=== PATIENT | female | born 1970 | race African-American/Black ===

== ENCOUNTER 2016-08-02 19:16 | Emergency (ER) | payer MEDICARE, OTHER ==
[~2016-08-02] VITALS: Ht 170.2 cm; Wt 108.9 kg
[~2016-08-02 19:16] MED LIST: AUGMENTIN 875-1 EAC1 ORAL; BACTRIM DS TAB1 EAC1 ORAL; IBUPROFEN600 MG ORAL; LISINOPRIL10 MG ORAL; NAPROXEN250 MG ORAL; NKM; NORCO 10/3251 EA ORAL; NORCO 5-325 TA1 EACH ORAL
[2016-08-02] MEDS ORDERED: ROBAXIN-750750 MG PO (21:06)
[2016-08-02] MEDS ORDERED: NORVASC10 MG ORAL (21:06)
[2016-08-02] MEDS ORDERED: IBUPROFEN800 MG ORAL (21:06)
[2016-08-02] MEDS ORDERED: Methocarbamol 750mg tab ORAL ONE (21:15)
[2016-08-02 21:26] VITALS: BP 151/105
[2016-08-02 21:43] VITALS: BP 185/102
[2016-08-02 22:09] VITALS: BP 154/84
[2016-08-02 22:10] VITALS: BP 154/84
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
== END 2016-08-02 22:10 | disposition home or self-care (01) ==
LOC: EMR 20:55
DX: I10 Essential (primary) hypertension (principal); M54.41 Lumbago with sciatica, right side; G89.29 Other chronic pain
CPT/HCPCS: 99283

== ENCOUNTER 2017-01-21 14:43 | Emergency (ER) | payer MEDICARE, OTHER ==
[~2017-01-21] VITALS: Ht 170.2 cm; Wt 108.9 kg
[~2017-01-21 14:43] MED LIST changes: +IBUPROFEN800 MG ORAL; +NORVASC10 MG ORAL; +ROBAXIN-750750 MG PO
[2017-01-21 15:00] VITALS: BP 153/93
--- NOTE | 2017-01-21 15:20 | Emergency Room Report ---
History of Present Illness General Chief Complaint: General Complaint Source: Patient Present Illness HPI 46 YO female presents to the ED c/o three itchy insect bites on the right side of the face x 3 days with worsening erythema and increased temperature to palpation since last night. pt. reports one lesion has progressed to have a blister. pt denies wheezing, swelling of the lips or tongue, SOB, or dyspnea. pt. denies taking OTC medications for her symptoms. pt denies lesions elsewhere. pt reports right sided ALARCON 4/10 in severity , denies n/v/f/c. Pt states itching is primary symptoms and reports that it is sever, denies burning sensation or pain on the lesions. Denies CP, Palpitations, LOC, AMS, dizziness , Changes in Vision, Sensation, paresthesias, or a sudden severe headache. Allergies: Uncoded Allergies: PINEAPPLES (Allergy, Unknown, 01/21/17) Patient History Past Medical History: see triage record Past Surgical History: none Pertinent Family History: none Last Menstrual Period: total hystrectomy Now: No Reviewed Nursing Documentation: PMH: Agreed, PSxH: Agreed Nursing Documentation-PMH Past Medical History: No History, Except For Hx Hypertension: Yes History Of Psychiatric Problem: Yes - Paranoid Schizophrenia Review of Systems All Other Systems: negative except mentioned in HPI Physical Exam Vital Signs Date Time Temp Pulse Resp B/P Pulse Ox O2 Delivery O2 Flow Rate FiO2 01/21/17 15:00 98.2 19 153/93 98 Room Air 01/21/17 15:00 76 Sp02 EP Interpretation: reviewed, normal General Appearance: no apparent distress, alert, GCS 15, non-toxic Head: normocephalic, atraumatic Eyes: bilateral eye PERRL, bilateral eye normal inspection ENT: hearing grossly normal, normal pharynx, no angioedema, normal voice Neck: full range of motion, supple/symm/no masses Respiratory: lungs clear, normal breath sounds, speaking full sentences Cardiovascular #1: regular rate, rhythm, no edema Musculoskeletal: back normal, gait/station normal, normal range of motion, non- tender Neurologic: alert, oriented x3, responsive, motor strength/tone normal, sensory intact, speech normal Psychiatric: judgement/insight normal, memory normal, mood/affect normal Skin: normal color, warm/dry, well hydrated, rash - 3 lesions on the right side of the face/cheek with mild induration noted, one lesion is noted to have discrete vessicle appearance. all lesions are less then 0.5cm in diameter. there is surrounding soft tissue erythema and mild increased temperature to palpation. Lymphatic: no adenopathy Medical Decision Making PA Attestation Dr. Wolf is my supervising Physician whom patient management has been discussed with. Diagnostic Impression: Primary Impression: Insect bite Qualified Codes: W57.XXXA - Bitten or stung by nonvenomous insect and other nonvenomous arthropods, initial encounter Additional Impression: Cellulitis Qualified Codes: L03.211 - Cellulitis of face ER Course Pt. presents to the ED c/o Itching, swelling, and erythema of 3 lesions on the right side of the face/cheek x 3 days. pt reports itching is severe, and redness with warmth has progressed x 1 day Ddx considered but are not limited to cellulitis, scabies, insect bites, tic bites, spider bites, contact dermatitis, Drug reaction, allergic reaction, fungal infection, lice. Vital signs: are WNL, pt. is afebrile H&PE are most consistent with multiple insect bites to the right side of face with secondary cellulitis. ORDERS: none required at this time, the diagnosis is clinical ED INTERVENTIONS: None required at this time. DISCHARGE: At this time pt. is stable for d/c to home. Will provide printed patient care instructions, and any necessary prescriptions. Care plan and follow up instructions have been discussed with the patient prior to discharge. Last Vital Signs Date Time Temp Pulse Resp B/P Pulse Ox O2 Delivery O2 Flow Rate FiO2 01/21/17 15:00 98.2 76 19 153/93 98 Room Air Disposition: HOME, SELF-CARE Condition: Stable Scripts Hydrocortisone (Hydrocortisone Cream 2.5%) Y Cream.appl 1 APPLIC TP BID, #28.3 GM Prov: Sandra Kumar P.A. 01/21/17 Diphenhydramine Hcl* (BENADRYL*) 25 Mg Capsule 25 MG ORAL Q6H Y for Itching, #20 CAP Prov: Sandra Kumar P.A. 01/21/17 Cephalexin* (KEFLEX*) 500 Mg Capsule 500 MG ORAL EVERY 12 HOURS for 7 Days, #14 CAP 0 Refills Prov: Sandra Kumar P.A. 01/21/17 Patient Instructions: Cellulitis, [id number], Insect Bite, [id number] Additional Instructions: Take medications as directed. Follow up with a Primary Care Provider in 3-5 days, even if your symptoms have resolved. --Please review list of primary care clinics, if you do not already have a primary care provider Return sooner to ED if new symptoms occur, or current symptoms become worse. Do not drink alcohol, drive, or operate heavy machinery while taking Benadryl as this may cause drowsiness. - Please note that this Emergency Department Report was dictated using [employer] brush worker technology software, occasionally this can lead to erroneous entry secondary to interpretation by the dictation equipment. Sandra Kumar Jan 21, 2017 15:20
[2017-01-21] MEDS ORDERED: BENADRYL25 MG ORAL (15:21)
[2017-01-21] MEDS ORDERED: CEPHALEXIN500 MG ORAL (15:21)
[2017-01-21] MEDS ORDERED: HYDROCORTISONE30 G2 TP (15:21)
[2017-01-21 15:28] VITALS: BP 153/93
== END 2017-01-21 15:28 | disposition home or self-care (01) ==
LOC: EMR 15:27
DX: S00.86XA Insect bite (nonvenomous) of other part of head, initial encounter (principal); S10.86XA Insect bite of other specified part of neck, initial encounter; L03.211 Cellulitis of face; L03.221 Cellulitis of neck; W57.XXXA Bitten or stung by nonvenomous insect and other nonvenomous arthropods, initial encounter; Y92.9 Unspecified place or not applicable; I10 Essential (primary) hypertension
CPT/HCPCS: 99284

== ENCOUNTER 2018-02-27 16:03 | Emergency (ER) | payer MEDICARE, OTHER ==
[~2018-02-27] VITALS: Ht 170.2 cm; Wt 107.0 kg
[~2018-02-27 16:03] MED LIST changes: +BENADRYL25 MG ORAL; +CEPHALEXIN500 MG ORAL; +HYDROCORTISONE30 G2 TP
[2018-02-27] MEDS ORDERED: SEROQUEL25 MG ORAL (16:27)
[2018-02-27 16:29] VITALS: BP 138/88
[2018-02-27] MEDS ORDERED: Metoclopramide 10mg/2ml Inj IM ONE (17:00)
[2018-02-27] MEDS ORDERED: Tylenol #3 tab (300mg/30mg) ORAL ONE (17:00)
[2018-02-27 17:51] LABS: APPEARANCE,URINE SLIGHTLY CLOUDY; BILIRUBIN, URINE NEGATIVE (NEGATIVE); GLUCOSE, URINE (UA) NEGATIVE (NEGATIVE); KETONES,URINE 1+ (NEGATIVE); LEUKOCYTE ESTERASE ,URINE 3+ (NEGATIVE); NITRITE,URINE NEGATIVE (NEGATIVE); PH,URINE 6 (4.5-8.0); PROTEIN,URINE 2+ (NEGATIVE); UROBILINOGEN,URINE 4 MG/DL (0.0-1.0)
[2018-02-27 17:53] LABS: COLOR,URINE YELLOW
--- NOTE | 2018-02-27 18:40 | Emergency Room Report ---
History of Present Illness General Chief Complaint: General Complaint Source: Patient Present Illness HPI 37-year-old female presents to the emergency department complaining of 9 out of 10 in severity right-sided headache 4 days. Patient reports history of migraines and she normally takes. Patient reports symptoms are consistent with previous migraines. Denies nausea, vomiting, . Denies history of recent head injury Denies CP, Palpitations, LOC, AMS, dizziness, Changes in Vision, Sensation, paresthesias, or a sudden severe headache. Allergies: Uncoded Allergies: PINEAPPLES (Allergy, Unknown, 01/21/17) Patient History Past Medical History: see triage record Past Surgical History: none Pertinent Family History: none Last Menstrual Period: hysterectomy Now: No Immunizations: UTD Reviewed Nursing Documentation: PMH: Agreed; PSxH: Agreed Nursing Documentation-PMH Past Medical History: No History, Except For Hx Hypertension: Yes History Of Psychiatric Problem: Yes - Schizophrenia Review of Systems All Other Systems: negative except mentioned in HPI Physical Exam Vital Signs Date Time Temp Pulse Resp B/P (MAP) Pulse Ox O2 Delivery O2 Flow Rate FiO2 02/27/18 16:21 98.3 71 14 138/88 97 Room Air 98.2 Sp02 EP Interpretation: reviewed, normal General Appearance: no apparent distress, alert, GCS 15, non-toxic Head: normocephalic, atraumatic Eyes: bilateral eye normal inspection, bilateral eye PERRL ENT: hearing grossly normal, normal voice Neck: full range of motion Respiratory: lungs clear, normal breath sounds, speaking full sentences Cardiovascular #1: regular rate, rhythm Gastrointestinal: non tender, soft Genitourinary: normal inspection, no CVA tenderness Musculoskeletal: back normal, gait/station normal, normal range of motion, non- tender Neurologic: alert, oriented x3, responsive, motor strength/tone normal, sensory intact, normal gait, speech normal, grossly normal Psychiatric: judgement/insight normal Skin: normal color, no rash, warm/dry, well hydrated Lymphatic: no adenopathy Medical Decision Making PA Attestation Dr. Muñoz is my supervising Physician whom patient management has been discussed with. Diagnostic Impression: Primary Impression: UTI (urinary tract infection) Qualified Codes: N30.00 - Acute cystitis without hematuria Additional Impression: Headache Qualified Codes: R51 - Headache ER Course Pt. presents to the ED c/o headache x [ ] Described as [ ] Ddx considered but are not limited to migraine, SAH, Pseudomotor Cerebri,, Mass lesion, Cluster ALARCON, Tension ALARCON, Post lumbar puncture ALARCON. Vital signs: are WNL, pt. is afebrile H&PE are most consistent with migraine headache ORDERS: - none required at this time, dx is clinical. ED INTERVENTIONS: - Compazine PO -IM Toradol DISCHARGE: At this time pt. is stable for d/c to home. Will provide printed patient care instructions, and any necessary prescriptions. Care plan and follow up instructions have been discussed with the patient prior to discharge. Labs Test 02/27/18 17:38 Urine Color Yellow Urine Appearance Slightly cloudy Urine pH 6 (4.5-8.0) Urine Specific [place] 1.020 (1.005-1.035) Urine Protein 2+ (NEGATIVE) Urine Glucose (UA) Negative (NEGATIVE) Urine Ketones 1+ (NEGATIVE) Urine Blood 4+ (NEGATIVE) Urine Nitrite Negative (NEGATIVE) Urine Bilirubin Negative (NEGATIVE) Urine Urobilinogen 4 MG/DL (0.0-1.0) Urine Leukocyte Esterase 3+ (NEGATIVE) Urine RBC 5-10 /HPF (0 - 2) Urine WBC 15-20 /HPF (0 - 2) Urine Squamous Epithelial Cells Many /LPF (NONE/OCC) Urine Bacteria Moderate /HPF (NONE) Last Vital Signs Date Time Temp Pulse Resp B/P (MAP) Pulse Ox O2 Delivery O2 Flow Rate FiO2 02/27/18 17:39 98.2 02/27/18 16:29 74 14 138/88 97 Room Air Disposition: HOME, SELF-CARE Condition: Stable Scripts Ciclopirox (PENLAC) 6.6 Ml Solution 6.6 ML TP DAILY, #6.6 ML Prov: Sandra Kumar 02/27/18 Aspirin/Acetaminophen/Caffeine (EXCEDRIN MIGRAINE GELTAB) 1 Each Tablet 1 EACH PO Q6HR, #20 TAB Prov: Sandra Kumar 02/27/18 Nitrofurantoin Monohyd/M-Cryst* (MACROBID 100 MG*) 100 Mg Capsule 100 MG ORAL EVERY 12 HOURS, #10 CAP Prov: Sandra Kumar 02/27/18 Referrals: NOT CHOSEN IPA/MD,REFERRING (PCP) Patient Instructions: Urinary Tract Infection, [id number]-es-[id number] Additional Instructions: Take medications as directed. Follow up with a Primary Care Provider in 3-5 days, even if your symptoms have resolved. --Please review list of primary care clinics, if you do not already have a primary care provider Return sooner to ED if new symptoms occur, or current symptoms become worse. - Please note that this Emergency Department Report was dictated using [employer]plet [employer] operations director technology software, occasionally this can lead to erroneous entry secondary to interpretation by the dictation equipment. Sandra Kumar Feb 27, 2018 18:40
[2018-02-27] MEDS ORDERED: EXCEDRIN MIGRA1 EACH PO (18:42)
[2018-02-27] MEDS ORDERED: NITROFURANTOIN100 M2 ORAL (18:42)
[2018-02-27] MEDS ORDERED: PENLAC6.6 M1 TP (18:44)
[2018-02-27 19:00] VITALS: BP 138/88
== END 2018-02-27 19:00 | disposition home or self-care (01) ==
LOC: EMR 16:45
DX: N39.0 Urinary tract infection, site not specified (principal); R51 Headache; I10 Essential (primary) hypertension; F20.9 Schizophrenia, unspecified
CPT/HCPCS: 81003; 87086; 96372; 99283; J2765

== ENCOUNTER 2018-05-29 19:47 | Emergency (ER) | payer MEDICARE, OTHER ==
[~2018-05-29] VITALS: Ht 170.2 cm; Wt 106.6 kg
[~2018-05-29 19:47] MED LIST changes: +EXCEDRIN MIGRA1 EACH PO; +NITROFURANTOIN100 M2 ORAL; +PENLAC6.6 M1 TP; +SEROQUEL25 MG ORAL
[2018-05-29 20:06] VITALS: BP 135/86
[2018-05-29 20:42] LABS: APPEARANCE,URINE SLIGHTLY CLOUDY; BILIRUBIN, URINE NEGATIVE (NEGATIVE); COLOR,URINE BROWN; GLUCOSE, URINE (UA) NEGATIVE (NEGATIVE); KETONES,URINE 1+ (NEGATIVE); LEUKOCYTE ESTERASE ,URINE 2+ (NEGATIVE); NITRITE,URINE NEGATIVE (NEGATIVE); PH,URINE 5 (4.5-8.0); PROTEIN,URINE 3+ (NEGATIVE); UROBILINOGEN,URINE 4 MG/DL (0.0-1.0)
[2018-05-29 20:47] LABS: ANION GAP 10 mmol/L (5-15); BLOOD UREA NITROGEN 15 mg/dL (7-18); CARBON DIOXIDE 25 MMOL/L (21-32); CHLORIDE 106 MMOL/L (98-107); CREATININE 1.1 MG/DL (0.55-1.30); POTASSIUM 3.9 MMOL/L (3.5-5.1); SODIUM 141 MMOL/L (136-145)
[2018-05-29 20:52] LABS: ALANINE AMINOTRANSFERASE 26 U/L (12-78); ALBUMIN 3.7 G/DL (3.4-5.0); ALBUMIN/GLOBULIN RATIO 0.9 (1.0-2.7); ALKALINE PHOSPHATASE 90 U/L (46-116); ASPARTATE AMINO TRANSFERASE 12 U/L (15-37); BILIRUBIN,TOTAL 0.2 MG/DL (0.2-1.0)
[2018-05-29 20:53] LABS: BASOPHILS % (AUTO) 0.8 % (0.0-2.0); EOSINOPHILS % (AUTO) 1.1 % (0.0-3.0); HEMATOCRIT 41.6 % (37.0-47.0); HEMOGLOBIN 13.3 G/DL (12.0-16.0); LYMPHOCYTES % (AUTO) 31.6 % (20.0-45.0); MEAN CORPUSCULAR VOLUME 79 FL (80-99); MONOCYTES % (AUTO) 6.6 % (1.0-10.0); NEUTROPHILS % (AUTO) 59.9 % (45.0-75.0); PLATELET COUNT 230 K/UL (150-450); RED BLOOD COUNT 5.24 M/UL (4.20-5.40); WHITE BLOOD COUNT 10.4 K/UL (4.8-10.8)
[2018-05-29 22:05] VITALS: BP 105/71
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
[2018-05-29 22:56] VITALS: BP 112/80
--- NOTE | 2018-05-30 11:55 | Diagnostic Imaging Report ---
Indication: left ankle pain Comparison: None Findings: 3 views of the left ankle obtained. No acute fracture, malalignment, periostitis, or osteochondral defects are identified. Soft tissue swelling noted. Impression: Soft tissue swelling
--- NOTE | 2018-05-30 11:57 | Diagnostic Imaging Report ---
Indication: Chest pain. Trauma Comparison: None A single view chest radiograph was obtained. Findings: Cardiomediastinal appearance is prominent. The lungs are clear. Pulmonary vascularity is appropriate. The diaphragmatic contour is smooth and costophrenic angles are sharp. No pleural effusions are identified. The bones are unremarkable. Impression: No acute findings. Mild cardiomegaly
== END 2018-05-29 22:56 | disposition home or self-care (01) ==
LOC: EMR 20:16
DX: S30.1XXA Contusion of abdominal wall, initial encounter (principal); S20.02XA Contusion of left breast, initial encounter; M25.572 Pain in left ankle and joints of left foot; V49.50XA Passenger injured in collision with unspecified motor vehicles in traffic accident, initial encounter; Y92.410 Unspecified street and highway as the place of occurrence of the external cause
CPT/HCPCS: 36415; 71045; 80053; 81003; 85025; 87086; 99284

== ENCOUNTER 2019-03-18 09:52 | Emergency (ER) | payer MEDICARE, OTHER ==
[~2019-03-18] VITALS: Ht 170.2 cm; Wt 99.8 kg
[2019-03-18 10:00] VITALS: BP 150/87
--- NOTE | 2019-03-18 10:07 | NUR ---
ED Nurse Note: Patient walked into ED from home c/o in termittent nosebleed for 1 week, patient reports it's mainly from her right nostril. patient denies any trauma. patient reports that there is a dry blood scab inside her right nostril and scared that it will start bleeding again after taking that scab off. patient is alert awake x4 ambulatory steady gait, berathing unlabored and even, able to speak in full sentences. no nosebleeding noted at this time.
--- NOTE | 2019-03-18 10:10 | NUR ---
ED Nurse Note: no visible wound noted.
--- NOTE | 2019-03-18 10:26 | Emergency Room Report ---
History of Present Illness General Chief Complaint: Nosebleed Source: Patient Present Illness HPI Patient presents with complaints of bleeding from the right nasal area that occurred on Monday It had stopped fairly well however this morning again she noticed some spotting and presents to the ER denies any headache denies any chest pain denies any trauma patient had an episode last year where she had more significant bleeding however this episode sounds to have been controlled well with some pressure Denies any change in medications And the bleeding was maintained to the right side Allergies: Uncoded Allergies: PINEAPPLES (Allergy, Unknown, 01/21/17) Patient History Past Medical History: see triage record Reviewed Nursing Documentation: PMH: Agreed; PSxH: Agreed Nursing Documentation-PMH Hx Hypertension: Yes Review of Systems All Other Systems: negative except mentioned in HPI Physical Exam Vital Signs Date Time Temp Pulse Resp B/P (MAP) Pulse Ox O2 Delivery O2 Flow Rate FiO2 03/18/19 10:00 98.6 72 18 150/87 (108) 95 Sp02 EP Interpretation: reviewed, normal General Appearance: well appearing, no apparent distress Head: normocephalic, atraumatic Eyes: bilateral eye PERRL, bilateral eye EOMI ENT: other - Scabbing on the right medial anterior nasal nare, no obvious active bleeding no septal hematoma Neck: supple Respiratory: lungs clear, no respiratory distress, no retraction Musculoskeletal: normal inspection Neurologic: alert, oriented x3 Skin: no rash Procedures Additional Procedure Procedure Narrative Patient had layer of silver nitrate applied to the right anterior chamber. This provides appropriate coverage on repeat evaluation there is no evidence of oozing or any bleeding and patient tolerated the procedure well Medical Decision Making Diagnostic Impression: Primary Impression: Epistaxis ER Course Given the history exam and findings at this time no obvious active bleeding patient did have silver nitrate Applied and discussed regarding care patient did discuss and asked regarding any chance of future bleeding I did discuss with her that I cannot say with 100% certainty that the area will not bleed however it does look appropriate at this time, and appropriate intervention has been taken as needed. patient will have close outpatient follow-up Last Vital Signs Date Time Temp Pulse Resp B/P (MAP) Pulse Ox O2 Delivery O2 Flow Rate FiO2 03/18/19 10:00 98.6 72 18 150/87 95 Status: improved Disposition: HOME, SELF-CARE Condition: Improved Additional Instructions: Patient is provided with the discharge instructions notified to follow up with primary doctor in the next 2-3 days otherwise return to the er with any worsening symptoms. Please note that this report is being documented using DRAGON technology. This can lead to erroneous entry secondary to incorrect interpretation by the dictating instrument. Shannan Smith DO Mar 18, 2019 10:26
[2019-03-18] MEDS ORDERED: Silver Nitrate Stick TOPIC ONE (10:30)
[2019-03-18 10:47] VITALS: BP 150/87
--- NOTE | 2019-03-18 10:47 | NUR ---
ER DISCHARGE NOTE: Patient is cleared to be discharged per ZULEMA PAVON, pt is aox4, on room air, with stable vital signs. pt was given dc instructions, pt was able to verbalize understanding, pt id band removed without complications. pt is able to ambulate with steady gait. pt took all belongings.
== END 2019-03-18 10:47 | disposition home or self-care (01) ==
LOC: EDBD 09:52 → EMR 10:43
DX: R04.0 Epistaxis (principal); I10 Essential (primary) hypertension; Z91.018 Allergy to other foods
CPT/HCPCS: 99283